=== PATIENT | male | born 1945 | race Caucasian/White ===

== ENCOUNTER 2016-09-16 08:08 | Emergency (ER) | payer OTHER, MEDICARE ==
[2016-09-16] MEDS ORDERED: DEXTROSE 50% SYRINGE 50 ML IV ONE (08:19)
[2016-09-16] MEDS ORDERED: DEXTROSE (50%) 50ML SYRG IV ONE ×2 (08:30→13:45)
[2016-09-16] MEDS ORDERED: methylPREDNISolone SOD SUCC 125 MG/2 ML VL IV ONE (08:30)
[2016-09-16] MEDS ORDERED: LABETALOL HCL 5 MG/ML 4ML SYRINGE IV ONE (08:30)
[2016-09-16 09:14] LABS: INR 1.11 (0.9-1.15); Partial Thromboplastin Time 27.2 sec (22.64-33.71); Prothrombin Time 11.4 sec (9.37-12.3)
[2016-09-16 09:17] LABS: Basophils # (auto) 0 uL; Basophils % (auto) 0.3 % (0.0-2.0); Eosinophils # (auto) 0 uL; Eosinophils % (auto) 0.3 % (0.0-7.0); Hematocrit 32.3 % (41.0-53.0); Hemoglobin 10.3 g/dL (13.5-17.5); Lymphocytes # (auto) 1.1 uL; Lymphocytes % (auto) 8.9 % (10.0-50.0); Mean Corpuscular Hemoglobin 28.8 pg (28.0-32.0); Mean Corpuscular Hgb Conc. 31.9 g/dL (32.0-36.0); Mean Corpuscular Volume 90.2 fL (80.0-100.0); Mean Platelet Volume 9.6 fL (7.4-10.4); Monocytes # (auto) 1.1 uL; Monocytes % (auto) 9.3 % (0.0-12.0); Neutrophils # (auto) 9.9 uL; Neutrophils % (auto) 81.2 % (37.0-80.0); Platelet Count (auto) 166 10^3/uL (140-450); Red Cell Distribution Width 15.2 % (11.6-16.0); SUSPECT VIEW TRANSMISSION; White Blood Cell 12.1 10^3/uL (4.4-10.8)
[2016-09-16 09:25] LABS: Albumin 3.7 g/dL (3.4-5.0); BUN/Creatinine Ratio 25.5; Bilirubin, Total 0.3 mg/dL (0.2-1.0); Calcium 7.5 mg/dL (8.5-10.1); Potassium 3.8 mmol/L (3.5-5.1); Total Protein 6.8 g/dL (6.4-8.2)
[2016-09-16 09:28] LABS: B-Type Natriuretic Peptide 87.64 pg/mL (0-100)
[2016-09-16 09:29] LABS: Temperature: 21.4 C (20.0-25.0)
[2016-09-16] MEDS ORDERED: ENOXAPARIN SOD 100 MG/1 ML SYRINGE SC ONE (10:45)
[2016-09-16] MEDS ORDERED: FUROSEMIDE 20 MG/2 ML VIAL IV ONE (10:45)
[2016-09-16] MEDS ORDERED: ASPirin 325 MG TAB PO ONE (10:45)
[2016-09-16 13:48] VITALS: BP 145/89
== END 2016-09-16 13:57 | disposition short-term general hospital (02) ==
LOC: ER 08:08 → EDBD 08:08 → ER 13:53
DX: G93.41 Metabolic encephalopathy (principal); R60.0 Localized edema; R22.0 Localized swelling, mass and lump, head; I11.0 Hypertensive heart disease with heart failure; I50.9 Heart failure, unspecified; E11.9 Type 2 diabetes mellitus without complications; Z90.49 Acquired absence of other specified parts of digestive tract
CPT/HCPCS: 36415; 36600; 71010; 80053; 82805; 82962; 83605; 83880; 84484; 85025; 85610; 85730; 93005; 94660; 96372; 96374; 96375; 96376; 99291; J1650; J1940; J2930; J3490; J7042